=== PATIENT | male | born 1970 | race Caucasian/White ===

== ENCOUNTER → 2022-03-12 10:27 | Outpatient (CLI) | payer OTHER, SELFPAY ==
--- NOTE | ~2022-03-12 | XR_ITS ---
EXAMINATION: XR chest 2V 03/12/2022 11:11 INDICATION: Wheezing. PROCEDURE: 2 view chest COMPARISON: No prior studies for comparison. FINDINGS: The lungs are clear. The cardiomediastinal silhouette is within normal limits. There are no pleural effusions. There is no pneumothorax suspected. The lungs are hyperinflated which is cons istent with, but not diagnostic of chronic obstructive pulmonary disease. IMPRESSION: 1: NO ACUTE CARDIOPULMONARY DISEASE. Reviewed, dictated and finalized at location A. SALES REPRESENTATIVE
== END ==
PROVIDERS: PCP Emergency Medicine; Visit Provider Emergency Medicine
DX: R06.2 Wheezing (principal)
CPT/HCPCS: 71046

== ENCOUNTER 2024-12-31 08:19 | Emergency (ER) | payer OTHER, SELFPAY ==
[2024-12-31 08:27] VITALS: BP 113/87; PULSE 64; RESP 20; TEMP 36.7; O2SAT 97
--- NOTE | 2024-12-31 08:53 | ED.SKABFB ---
HPI - Skin/Abscess/Foreign Bdy General Chief complaint: Skin/Abscess/Foreign Body Stated complaint: Rash Time Seen by Provider: 12/31/24 08:40 Source: patient and RN notes reviewed Mode of arrival: ambulatory Limitations: no limitations History of Present Illness HPI narrative: 54-year-old male presents Express Care complaining of itchiness all over. Patient believes he has a rash on his back, said he has been very itchy over the last 2 days. Patient said he did some yd work but denies any poison hever change any food daily habits. Paste that he does have a history of eczema. Patient denies any difficulty breathing, wheezing, nausea, vomiting, fevers, body aches, chills, swelling to his face, mouth, tongue, throat, difficulty clearing secretions, chest pains, or any other symptoms. Patient has not tried anything [id number] to help with the itchiness. Related Data Allergies Allergy/AdvReac Type Severity Reaction Status Date / Time No Known Allergies Allergy Verified 12/31/24 08:26 Review of Systems Review of Systems: CONSTITUTIONAL: Denies fever, chills, or sweats. EYES: Denies visual changes, redness, or discharge. ENT: Denies rhinorrhea, congestion, sore throat, or otalgia. CARDIOVASCULAR: Denies chest pain, palpitations, or edema. RESPIRATORY: Denies cough or dyspnea. GASTROINTESTINAL: Denies abdominal pain, nausea, vomiting, or diarrhea. GENITOURINARY: Denies dysuria or hematuria. SKIN: Denies rash. Positive for itching MUSCULOSKELETAL: Denies back pain, joint pain, or myalgia. NEUROLOGIC: Denies headache, numbness, or weakness. PSYCHIATRIC: Denies anxiety or depression. All other systems reviewed are negative, except as documented in HPI. PMFSH Comments At the time of my signature, I reviewed and agree with the nursing past medical, surgical, social, and family history. There is no relevant family history pertinent to the patient complaint. Exam Narrative: GENERAL: This is a well-nourished, well-developed adult, in no apparent distress. They are non ill-appearing, nontoxic appearing. HEAD: normocephalic, atraumatic. EYES: Sclera clear/white. Conjunctiva normal. Vision is grossly intact. Extraocular movements intact EARS: External ears normal, Hearing grossly intact. NOSE: External nose normal THROAT: Mucous membranes moist, NECK: Neck supple, CARDIOVASCULAR: Regular rate and rhythm RESPIRATORY: Respiratory rate normal, respiratory effort nonlabored, no respiratory distress SKIN: No suspicious lesions or rashes present. Upper back is erythemic, flat, mild excoriation, and pruritic. Mild excoriation to the anterior trunk with erythema. Dermatographia present likely from scratching. No area of fluctuance or induration. No tenderness to palpation. NEURO: awake, alert, and oriented to person, place and time. There were no obvious focal neurologic abnormalities. EXTREMITIES: No joint tenderness, effusion, or edema noted. Course Course Emergency Course: Portions of this record may have been created with voice recognition software Level of Care: Express Care Visit Vital Signs Vital signs: Vital Signs Temperature 98.1 F 12/31/24 08:27 Pulse Rate 64 12/31/24 08:27 Respiratory Rate 20 12/31/24 08:27 Blood Pressure 113/87 12/31/24 08:27 Pulse Oximetry 97 12/31/24 08:27 Oxygen Delivery Room Air 12/31/24 08:27 Temperature 98.1 F 12/31/24 08:27 Pulse Rate 64 12/31/24 08:27 Respiratory Rate 20 12/31/24 08:27 Blood Pressure 113/87 12/31/24 08:27 Pulse Oximetry 97 12/31/24 08:27 Oxygen Delivery Room Air 12/31/24 08:27 Reviewed MDM - Skin/Abscess/Foreign Bdy MDM Narrative Medical decision making narrative: No obvious rash present or hives. Redness likely from persistent scratching. Will give a short course of prednisone educated the patient on the use of antihistamines help with itchiness. Discussed physical exam findings. Advised supportive measures and signs/symptoms to go to the ER. Pt is appropriate for outpt treatment and f/u. Differential Diagnosis Differential diagnosis: Likely urticaria, cellulitis, eczema, contact dermatitis and other (Pruritus) Critical Care Time Critical Care Time Critical Care Time: No Discharge Plan Discharge Clinical Impression: Pruritus of skin Patient Disposition: Home Condition: Stable Instructions: Itchy Skin (ED) Additional Instructions: Take the prednisone as directed. Take it in the morning and take it with food. You may use calamine lotion, camphor, hydrocortisone cream Benadryl cream as needed for itchiness symptoms. You may also take Zyrtec, Rayna, or Claritin as needed for allergy or itchiness symptoms. Follow instructions on the bottle. These medications are not drowsy. You may use Benadryl as needed as well for itchiness however Benadryl may make you drowsy is to not drive or operate machinery while taking Benadryl. Follow-up PCP in 3-5 days. If you develop any worsening redness, swelling, discharge, fevers, breathing problems, or any other concerns please go to the ER immediately. Patient Language: Vietnamese Prescriptions: New prednisone 20 mg tablet 40 mg PO DAILY 3 Days Qty: 6 0RF Follow-up/Referrals: Joey Catalan MD [Primary Care Provider, [facility]] Time of Disposition: 08:47
== END 2024-12-31 08:58 | disposition home or self-care (01) ==
PROVIDERS: PCP Emergency Medicine
DX: L29.9 Pruritus, unspecified (principal); I10 Essential (primary) hypertension; E78.00 Pure hypercholesterolemia, unspecified
CPT/HCPCS: 99203; G0463